=== PATIENT | female | born 1990 | race Caucasian/White ===

== ENCOUNTER 2016-07-11 11:40 | Emergency (ER) | payer SELFPAY ==
[~2016-07-11] VITALS: Ht 152.4 cm; Wt 69.5 kg
[~2016-07-11 11:40] MED LIST: PRENAT PO
[2016-07-11 11:45] VITALS: Ht 152.4 cm; Wt 69.5 kg
[2016-07-11] MEDS ORDERED: ONDANSETRON 4 MG INJ IV STA (12:12)
[2016-07-11] MEDS ORDERED: SOD CHLORIDE 0.9% 1,000 ML IV STA (12:12)
[2016-07-11 12:49] LABS: ADD UMIC YES; URINE BILIRUBIN (Dip) NEGATIVE (NEGATIVE); URINE BLOOD (Dip) 1+ (NEGATIVE); URINE COLOR LT. YELLOW (YELLOW); URINE GLUCOSE (Dip) NEGATIVE (NEGATIVE); URINE KETONES (Dip) 3+ (NEGATIVE); URINE LEUKOCYTE ESTERASE (Dip) NEGATIVE (NEGATIVE); URINE NITRITE (Dip) NEGATIVE (NEGATIVE); URINE TOTAL PROTEIN (Dip) TRACE (NEGATIVE); URINE UROBILINOGEN (Dip) 1.0 E.U./dL (0.1-1.0)
[2016-07-11 12:58] LABS: BACTERIA,URINE RARE; MUCUS,URINE FEW; URINE RBCS 0-2 /HPF (0)
[2016-07-11 12:59] LABS: BASOPHILS % 0.1 % (0.0-2.0); EOSINOPHILS % 0.1 % (0.0-7.0); HEMATOCRIT 41.1 % (37.0-47.0); HEMOGLOBIN 13.9 g/dl (12.0-16.0); LYMPHOCYTES # 0.7 10^3/ul (0.8-2.9); LYMPHOCYTES % 6.8 % (15.0-51.0); MEAN CORPUSCULAR HEMOGLOBIN 28.7 pg (29.0-33.0); MEAN CORPUSCULAR HGB CONC 33.7 g/dl (32.0-37.0); MEAN CORPUSCULAR VOLUME 85.2 fl (82.0-101.0); MEAN PLATELET VOLUME 9.2 fl (7.4-10.4); MONOCYTE # 0.3 10^3/ul (0.3-0.9); MONOCYTES % 2.9 % (0.0-11.0); NEUTROPHIL # 9.9 10^3/ul (1.6-7.5); NEUTROPHILS % 90.1 % (39.0-77.0); PLATELET COUNT 403 10^3/UL (140-440); RED BLOOD COUNT 4.83 10^6/ul (4.20-5.40); RED CELL DISTRIBUTION WIDTH 15.2 % (11.5-14.5)
[2016-07-11 13:00] LABS: ALBUMIN 4.4 g/dl (3.3-4.9)
[2016-07-11 13:01] LABS: CONDITION 1; LH ANALYZER COMMENTS 1; POTASSIUM 3.7 mmol/L (3.5-5.1)
[2016-07-11 13:03] LABS: ALBUMIN/GLOBULIN RATIO 1.18; BILIRUBIN,INDIRECT 0.6 mg/dl (0-1.1); BILIRUBIN,TOTAL 0.6 mg/dl (0.2-1.3); CREATININE 0.43 mg/dl (0.44-1.00); TOTAL PROTEIN 8.1 g/dl (6.1-8.1)
[2016-07-11 13:04] LABS: CALCIUM 8.9 mg/dl (8.4-10.2)
--- NOTE | 2016-07-11 13:18 | ERD ---
ER Documentation Chief Complaint Date/Time DATE: 07/11/16 TIME: 13:14 Chief Complaint vomiting for 2 days. abdominal pain HPI This is a 26-year-old female who presents to the emergency department today complaining of vomiting and abdominal pain for the past 2 days. Patient states she has been vomiting constantly and feels dehydrated. Patient states that she is approximately 7 weeks hasn't of ointment to see an [employer] next week for her first OB appointment. Denies any fevers or chills or diarrhea. ROS All systems reviewed and are negative except as per history of present illness. Medications Home Meds Active Scripts Acetaminophen* (Tylophen*) 500 Mg Capsule, 1 CAP PO Q6H Y for PAIN AND OR ELEVATED TEMP, #30 CAP Prov:DWAINE ALFONSO PA-C 07/11/16 Ondansetron Hcl* (Zofran*) 4 Mg Tablet, 4 MG PO Q6H for NAUSEA AND/OR VOMITING, #30 TAB Prov:DWAINE ALFONSO PA-C 07/11/16 Reported Medications Multivit/Min/Fol Ac/Iron/Pren* ( S*) Unknown Strength Tab, PO DAILY, TAB 07/01/15 Allergies Allergies: Coded Allergies: No Known Allergy (Unverified , 02/06/16) PMhx/Soc History of Surgery: Yes (cholecystectomy) Anesthesia Reaction: No Hx Neurological Disorder: No Hx Respiratory Disorders: No Hx Cardiac Disorders: No Hx Psychiatric Problems: No Hx Miscellaneous Medical Probl: No Hx Alcohol Use: No Hx Substance Use: No Hx Tobacco Use: No Smoking Status: Unknown if ever smoked Physical Exam Vitals Vital Signs Date Time Temp Pulse Resp B/P Pulse Ox O2 Delivery O2 Flow Rate FiO2 07/11/16 11:45 98.6 100 20 113/73 100 Physical Exam Const: No acute distress Head: Atraumatic Eyes: Normal Conjunctiva ENT: Normal External Ears, Nose and Mouth. Neck: Full range of motion..~ No meningismus. Resp: Clear to auscultation bilaterally Cardio: Regular rate and rhythm, no murmurs Abd: Soft, diffuse abdominal tenderness, non distended. Normal bowel sounds. No Tenderness in McBurney's. Skin: No petechiae or rashes Neur: Awake and alert Psych: Normal Mood and Affect Result Diagram: 07/11/16 1228 07/11/16 1228 Results 24 hrs Laboratory Tests Test 07/11/16 12:28 Alanine Aminotransferase (ALT/SGPT) 23IU/L Albumin 4.4g/dl Albumin/Globulin Ratio 1.18 Alkaline Phosphatase 70IU/L Anion Gap 20 Aspartate Amino Transf (AST/SGOT) 16IU/L Basophils # 0.010^3/ul Basophils % 0.1% Beta HCG, Quantitative 33769.0mIU/ml Blood Morphology Comment Blood Urea Nitrogen 8mg/dl Calcium Level 8.9mg/dl Carbon Dioxide Level 23mmol/L Chloride Level 103mmol/L Creatinine 0.43mg/dl Direct Bilirubin 0.00mg/dl Eosinophils # 0.010^3/ul Eosinophils % 0.1% Globulin 3.70g/dl Glucose Level 98mg/dl Hematocrit 41.1% Hemoglobin 13.9g/dl Indirect Bilirubin 0.6mg/dl Lymphocytes # 0.710^3/ul Lymphocytes % 6.8% Mean Corpuscular Hemoglobin 28.7pg Mean Corpuscular Hemoglobin Concent 33.7g/dl Mean Corpuscular Volume 85.2fl Mean Platelet Volume 9.2fl Monocytes # 0.310^3/ul Monocytes % 2.9% Neutrophils # 9.910^3/ul Neutrophils % 90.1% Nucleated Red Blood Cells # 0.010^3/ul Nucleated Red Blood Cells % 0.0/100WBC Platelet Count 04626^3/UL Potassium Level 3.7mmol/L Red Blood Count 4.8310^6/ul Red Cell Distribution Width 15.2% Sodium Level 142mmol/L Total Bilirubin 0.6mg/dl Total Protein 8.1g/dl Urine Bacteria RARE Urine Bilirubin NEGATIVE Urine Clarity CLEAR Urine Color LT. YELLOW Urine Epithelial Cells RARE Urine Glucose NEGATIVE% Urine Hemoglobin 1+ Urine Ketones 3+ Urine Leukocyte Esterase NEGATIVE Urine Microscopic RBC 0-2/HPF Urine Microscopic WBC 0-2/HPF Urine Mucus FEW Urine Nitrite NEGATIVE Urine Specific Ward 1.025 Urine Total Protein TRACE Urine Urobilinogen 1.0 E.U./dL Urine pH 6.0 White Blood Count 11.010^3/ul Current Medications Medications (Trade) Dose Ordered Sig/Roddy Route PRN Reason Start Time Stop Time Status Last Admin Dose Admin Sodium Chloride (NS) 1,000 ml @ 1,000 mls/hr Q1H STAT IV 1/20/17 12:12 07/11/16 13:11 DC 07/11/16 12:35 Ondansetron HCl (Zofran Inj) 4 mg ONCE STAT IV 07/11/16 12:12 07/11/16 12:15 DC 07/11/16 12:35 DIAGNOSTIC IMAGING REPORT Patient: YVETTE BOCANEGRA : 1990 Age: 26 Sex: F MR #: [id number] DOS: 07/11/16 1212 Ordering MD: DWAINE ALFONSO PA-C Location: [facility] Room/Bed: PROCEDURE: US Obstetrical 1st Trimester CLINICAL INDICATION: Abdominal pain TECHNIQUE: Multiple real-time images were acquired of the patient's maternal abdomen utilizing a curved array transducer. COMPARISON: None FINDINGS: There is a well implanted gestational sac within the fundus of the uterus with a mean sac diameter of 2.0 cm which corresponds to a gestational sac age of 6 weeks 6 days. No yolk sac is identified. There is a single pole with a crown-rump length of 0.53 cm which corresponds to a gestational age of 6 weeks 2 days. There is positive cardiac activity being a t 108 beats per minute. The right ovary measures 2.4 x 2.4 x 1.3 cm. The left ovary measures 3.5 x 2.5 x 2.3 cm. There is a solid ovoid structure within the left ovary measuring 2.1 x 2.0 x 1.8 cm. No other adnexal mass or free fluid is identified IMPRESSION: 1. Single live intrauterine fetus which by ultrasound corresponds to a gestational age of 6 weeks 4 days plus or minus 3 weeks. The estimated date of delivery based on today's sonogram is 03/02/2017. 2. There is a solid 2.1 x 2.0 x 1.8 cm nodule within the left ovary. This could represent a dermoid. 3. No free fluid is evident. Physician Brianda Date Time Electronically viewed and signed by Physician Brianda on 07/11/2016 13:16 RH/ CC: DWAINE ALFOSNO PA-C Procedures/MDM This is a 26-year-old female who presents to the emergency department today complaining of vomiting and abdominal pain for the past 2 days. Patient's pulse was 100 here in the emergency department on intake. She does have some diffuse abdominal pain and therefore I did obtain laboratory work as well as an ultrasound. Laboratory work shows a very mildly elevated white blood cell count. She is not anemic. Platelets are within normal limits. Electrolytes are within normal limits. Glucose is normal limits. Liver function is within normal limits. UA Quant hCG 06493.0 RH Status O+ Ultrasound shows a single live intrauterine fetus corresponding to gestational age of 6 weeks 4 days plus or -3 weeks. Estimated date of delivery is 2016. There is a solid over structure within the left ovary that could represent a dermoid. There is no other adnexal mass or free fluid. There is no yolk sac however there is a single pole. There is cardiac activity at 108 bpm. Patient was given IV fluids and Zofran here in the emergency department and symptoms improved. His abdominal pain was significantly improved and she has no right upper quadrant tenderness and no right lower quadrant tenderness. She has no tenderness at McBurney's and I have low suspicion for any acute surgical abdomen. Patient's abdominal pain may be related to her vomiting or related pain. I have low suspicion for ectopic , ovarian abscess, ovarian torsion Symptoms at this time CONSISTENT with vomiting during versus hyperemesis gravidarum. I do not felt the patient requires admission as patient had no vomiting here in the emergency department. She'll be given a prescription for Tylenol, Zofran for home. She is instructed to follow-up with her [employer] At this time the patient is stable for discharge and outpatient management. Patient should follow up with their PCP in the next 1-2 days. They may return to the emergency department sooner for any persistent or worsening of symptoms. Patient understood and agreed with the plan. Departure Diagnosis: Primary Impression: Vomiting during Condition: Fair DWAINE ALFONSO PA-C Jul 11, 2016 13:18
[2016-07-11] MEDS ORDERED: ONDA4TAB8 PO (15:41)
[2016-07-11] MEDS ORDERED: ACET500C5 PO (15:41)
[2016-07-11 15:51] VITALS: BP 110/68; PULSE 87; RESP 20; TEMP 97.9
== END 2016-07-11 15:52 | disposition home or self-care (01) ==
LOC: FTE 11:40
DX: O21.9 Vomiting of pregnancy, unspecified (principal); Z3A.01 Less than 8 weeks gestation of pregnancy
CPT/HCPCS: 36415; 76801; 76817; 80053; 81001; 81003; 84702; 85025; 86900; 86901; 96374; 99285; J2405; J7030